=== PATIENT | female | born 1935 | race Caucasian/White ===

== ENCOUNTER 2020-03-21 11:39 | Emergency (ER) | payer MEDICARE, BC ==
[2020-03-21] MEDS ORDERED: Meclizine 25 MG Tab PO ONE (12:38)
--- NOTE | 2020-03-21 12:45 | EDM.PDOC ---
ED HPI GENERAL MEDICAL PROBLEM - General Chief Complaint: Neurological Problem Stated Complaint: FEELING FAINT SINCE YESTERDAY VERTIGO Time Seen by Provider: 03/21/20 12:08 Source of Information: Reports: Patient, RN Notes Reviewed History Limitations: Reports: No Limitations - History of Present Illness INITIAL COMMENTS - FREE TEXT/NARRATIVE: I was out that it is a small scab 84-year-old female presents emergency department today for complaint of lightheadedness, She states is been ongoing for 2 days, it does wax and wane she seems to notice the lightheadedness occurs more frequently when she goes from lying to standing or sitting to standing. She has no difficulty ambulating but does feel that she may fall over. Has had nausea with no vomiting describes no neurologic deficit - Related Data Allergies Allergy/AdvReac Type Severity Reaction Status Date / Time No Known Allergies Allergy Verified 03/21/20 12:12 Home Meds: Home Meds FLUoxetine HCl [Fluoxetine HCl] 1 tab PO DAILY 03/21/20 [History] Levothyroxine 1 tab PO DAILY 03/21/20 [History] Potassium Chloride 1 tab PO DAILY 03/21/20 [History] atorvaSTATin [Lipitor] 1 tab PO DAILY 03/21/20 [History] carvediloL [Carvedilol] 1 tab PO DAILY 03/21/20 [History] Past Medical History Psychiatric History: Reports: Depression Endocrine/Metabolic History: Reports: Hypokalemia, Hypoparathyroidism Social & Family History - Tobacco Use Smoking Status *Q: Never Smoker ED ROS GENERAL - Review of Systems Review Of Systems: See Below Constitutional: Reports: No Symptoms HEENT: Reports: No Symptoms Respiratory: Reports: No Symptoms Cardiovascular: Reports: Lightheadedness GI/Abdominal: Reports: Nausea. Denies: Vomiting : Reports: No Symptoms Musculoskeletal: Reports: No Symptoms ED EXAM, DIZZINESS - Physical Exam Exam: See Below Text/Narrative:: Head impulse test: Corrective saccades is normal when head turned to the bilateral Nystagmus: unidirectional, horizontal 0-beating nystagmus Skew deviation: grossly absent Exam Limited By: No Limitations General Appearance: Alert, WD/WN, No Apparent Distress Eye Exam: Bilateral Eye: EOMI, Normal Inspection, PERRL Nystagmus: No: worsens with head to L, worsens with head to R, reproducible, reversible, constant, short duration Ears: Normal External Exam, Normal Canal, Hearing Grossly Normal, Normal TMs Throat/Mouth: Normal Inspection, Normal Lips, Normal Teeth, Normal Gums, Normal Oropharynx, Normal Voice, No Airway Compromise Head Exam: Atraumatic, Normocephalic Vertigo: reproducible (With sitting up) Neck: Normal Inspection, Supple, Non-Tender, Full Range of Motion Respiratory/Chest: No Respiratory Distress, Lungs Clear, Normal Breath Sounds, No Accessory Muscle Use, Chest Non-Tender Cardiovascular: Regular Rate, Rhythm, No Murmur GI/Abdominal: Soft, Non-Tender Neurological: Alert, Oriented x 3 Course - Vital Signs Last Recorded V/S: Last Vital Signs Temp 97.4 F 03/21/20 12:21 Pulse 67 03/21/20 12:21 Resp 18 03/21/20 12:21 BP 156/75 H 03/21/20 13:30 Pulse Ox 95 03/21/20 12:21 - Orders/Labs/Meds Labs: Laboratory Tests 03/21/20 03/21/20 03/21/20 Range/Units 12:38 12:50 12:50 WBC 4.9 (4.5-11.0) K/uL RBC 4.38 (3.30-5.50) M/uL Hgb 13.1 (12.0-15.0) g/dL Hct 39.9 (36.0-48.0) % MCV 91 (80-98) fL MCH 30 (27-31) pg MCHC 33 (32-36) % Plt Count 225 (150-400) K/uL Neut % (Auto) 60 (36-66) % Lymph % (Auto) 24 (24-44) % [place] % (Auto) 8 H (2-6) % Eos % (Auto) 7 H (2-4) % Baso % (Auto) 2 H (0-1) % Sodium 142 (140-148) mmol/L Potassium 3.9 (3.6-5.2) mmol/L Chloride 106 (100-108) mmol/L Carbon Dioxide 28 (21-32) mmol/L Anion Gap 7.6 (5.0-14.0) mmol/L BUN 15 (7-18) mg/dL Creatinine 0.8 (0.6-1.0) mg/dL Est Cr Clr Drug Dosing 46.82 mL/min Estimated GFR (MDRD) > 60 (>60) Glucose 102 (74-106) mg/dL Calcium 8.5 (8.5-10.1) mg/dL Total Bilirubin 0.7 (0.2-1.0) mg/dL AST 25 (15-37) U/L ALT 36 (12-78) U/L Alkaline Phosphatase 79 (46-116) U/L Total Protein 6.6 (6.4-8.2) g/dL Albumin 3.5 (3.4-5.0) g/dL Globulin 3.1 (2.3-3.5) g/dL Albumin/Globulin Ratio 1.1 L (1.2-2.2) Urine Color Yellow (YELLOW) Urine Appearance Slightly cloudy A (CLEAR) Urine pH 8.5 H (5.0-8.0) Ur Specific Brilliant 1.025 (1.008-1.030) Urine Protein Negative (NEGATIVE) mg/dL Urine Glucose (UA) Negative (NEGATIVE) mg/dL Urine Ketones Negative (NEGATIVE) mg/dL Urine Occult Blood Negative (NEGATIVE) Urine Nitrite Negative (NEGATIVE) Urine Bilirubin Negative (NEGATIVE) Urine Urobilinogen 0.2 (0.2-1.0) EU/dL Ur Leukocyte Esterase Trace H (NEGATIVE) Urine RBC 0-5 (0-5) Urine WBC 0-5 (0-5) Ur Epithelial Cells Few Amorphous Sediment Many Urine Bacteria Not seen Urine Mucus Not seen Meds: Medications Discontinued Medications Generic Name Dose Route Start Last Admin Trade Name Freq PRN Reason Stop Dose Admin Meclizine HCl 25 mg 03/21/20 12:38 03/21/20 12:45 Antivert PO 03/21/20 12:39 25 mg ONETIME ONE Administration Departure - Departure Time of Disposition: 14:40 Disposition: Home, Self-Care 01 Condition: Fair Clinical Impression: Lightheadedness - Discharge Information Instructions: Dehydration, Elderly, [id number] Referrals: Jesse Tolbert MD [Primary Care Provider] - Forms: ED Department Discharge Additional Instructions: Recommending increasing your fluid intake, and take more time when you move positions from lying to standing, please followup with your primary care provider in 3-5 days if not better, please call return to the emergency department with worsening of symptoms. Sepsis Event Note (ED) - Evaluation Sepsis Screening Result: No Definite Risk - Focused Exam Vital Signs: Vital Signs Temp Pulse Resp BP Pulse Ox 03/21/20 13:30 156/75 H 03/21/20 13:00 143/65 H 03/21/20 12:30 153/71 H 03/21/20 12:21 97.4 F 67 18 191/88 H 95 03/21/20 12:10 97.4 F 67 18 191/88 H 95 - Assessment/Plan Plan: Assessment Acuity = acute Site and laterality = lightheadedness Etiology = probable relationship to intravascular volume depletion with high specific gravity 1.025 and blood pressure medications mainly the beta-camilla Manifestations = none Location of injury = Home Lab values = CBC CMP unremarkable urinalysis does reveal specific gravity 1.025 Plan I did review lab work with her as well as her medications she is getting try and increase her fluid intake and try and move more slowly when she changes position and follow-up with her primary care in 3 to 5 days if not better This note was dictated using [employer] voice recognition software please call with any questions on syntax or grammar.
== END 2020-03-21 15:00 | disposition home or self-care (01) ==
LOC: JP.ED 11:39
DX: R42 Dizziness and giddiness (principal); F32.9 Major depressive disorder, single episode, unspecified; E20.9 Hypoparathyroidism, unspecified; Z79.899 Other long term (current) drug therapy
CPT/HCPCS: 36415; 80053; 81001; 85025; 99284; A9270

== ENCOUNTER 2020-03-22 11:55 | Emergency (ER) | payer MEDICARE, BC ==
[2020-03-22] MEDS ORDERED: Sodium Chloride 0.9% 10 ML Syringe FLUSH PRN ×2 (12:41→13:40)
[2020-03-22] MEDS ORDERED: Sodium Chloride 0.9% 1,000 ML IV SCH (12:45)
--- NOTE | 2020-03-22 12:52 | EDM.PDOC ---
ED HPI GENERAL MEDICAL PROBLEM - General Chief Complaint: Gastrointestinal Problem Stated Complaint: LETHARGIC, NAUSEA Time Seen by Provider: 03/22/20 12:14 Source of Information: Reports: Patient, Old Records, RN Notes Reviewed History Limitations: Reports: No Limitations - History of Present Illness INITIAL COMMENTS - FREE TEXT/NARRATIVE: 84-year-old female presents emergency department a complaint of lightheadedness, I had the opportunity to evaluate her yesterday for her lightheadedness she has been lightheaded for now 3 to 4 days she feels it is positional she does admit to not drinking as much fluid as she should my evaluation yesterday normal blood work however her specific gravity of her urine was consistent with intravascular volume depletion. I recommended she consume more fluids especially with electrolytes and take caution when changing positions being on her beta-camilla. She went home yesterday had one bout of emesis slept through the night did not take any of her evening medications her morning medications. She contacted the clinic for evaluation with her primary care provider recommendations from the clinic were go to go to the emergency department she is here for further evaluation. - Related Data Allergies Allergy/AdvReac Type Severity Reaction Status Date / Time No Known Allergies Allergy Verified 03/22/20 12:13 Home Meds: Home Meds FLUoxetine HCl [Fluoxetine HCl] 1 tab PO DAILY 03/21/20 [History] Levothyroxine 1 tab PO DAILY 03/21/20 [History] Potassium Chloride 1 tab PO DAILY 03/21/20 [History] atorvaSTATin [Lipitor] 1 tab PO DAILY 03/21/20 [History] carvediloL [Carvedilol] 1 tab PO DAILY 03/21/20 [History] Past Medical History Cardiovascular History: Reports: Angina, High Cholesterol, Hypertension Other Cardiovascular History: mitral valve prolapse Psychiatric History: Reports: Depression Endocrine/Metabolic History: Reports: Hypokalemia, Hypoparathyroidism - Past Surgical History GI Surgical History: Reports: Colonoscopy Social & Family History - Tobacco Use Smoking Status *Q: Former Smoker Used Tobacco, but Quit: Yes Month/Year Tobacco Last Used: 25 years - Caffeine Use Caffeine Use: Reports: Coffee - Recreational Drug Use Recreational Drug Use: No ED ROS GENERAL - Review of Systems Review Of Systems: See Below Constitutional: Reports: No Symptoms HEENT: Reports: No Symptoms Respiratory: Reports: No Symptoms Cardiovascular: Reports: Lightheadedness GI/Abdominal: Reports: No Symptoms : Reports: No Symptoms ED EXAM, DIZZINESS - Physical Exam Exam: See Below Text/Narrative:: She was able to ambulate up and down the mcnulty in the emergency department without difficulty Exam Limited By: No Limitations General Appearance: Alert, WD/WN, No Apparent Distress Respiratory/Chest: No Respiratory Distress Neurological: Alert, Normal Mood/Affect, Normal Gait Course - Vital Signs Last Recorded V/S: Last Vital Signs Temp 97.5 F 03/22/20 12:24 Pulse 68 03/22/20 12:24 Resp 12 03/22/20 12:24 BP 151/61 H 03/22/20 12:24 Pulse Ox 95 03/22/20 12:24 - Orders/Labs/Meds Orders: Active Orders 24 hr Category Date Time Status Peripheral IV Care [RC] . DIRECTED Care 03/22/20 12:42 Active Sodium Chloride 0.9% [Normal Saline] 1,000 ml Med 03/22/20 12:45 Active IV ASDIRECTED Sodium Chloride 0.9% [Saline Flush] Med 03/22/20 12:41 Active 10 ml FLUSH ASDIRECTED PRN Peripheral IV Insertion Adult [OM.PC] Urgent Oth 03/22/20 12:41 Ordered Medication Orders Sodium Chloride (Normal Saline) 1,000 mls @ 500 mls/hr IV ASDIRECTED BRIAN Last Admin: 03/22/20 13:00 Dose: 500 mls/hr Documented by: [email or web address] Sodium Chloride (Saline Flush) 10 ml FLUSH ASDIRECTED PRN PRN Reason: Keep Vein Open Last Admin: 03/22/20 13:01 Dose: 10 ml Documented by: [id number] Meds: Medications Generic Name Dose Route Start Last Admin Trade Name Freq PRN Reason Stop Dose Admin Sodium Chloride 1,000 mls @ 500 mls/hr 03/22/20 12:45 03/22/20 13:00 Normal Saline IV 500 mls/hr ASDIRECTED BRIAN Administration Sodium Chloride 10 ml 03/22/20 12:41 03/22/20 13:01 Saline Flush FLUSH 10 ml ASDIRECTED PRN Administration Keep Vein Open Discontinued Medications Generic Name Dose Route Start Last Admin Trade Name Freq PRN Reason Stop Dose Admin Sodium Chloride 100 mls @ 3.5 mls/sec 03/22/20 13:45 03/22/20 14:20 Normal Saline IV 03/22/20 13:46 4 mls/sec ASDIRECTED BRIAN Administration Iopamidol 100 ml 03/22/20 13:45 03/22/20 14:20 [id number] (76%) IV 03/22/20 13:46 100 ml . DIRECTED BRIAN Administration Sodium Chloride 10 ml 03/22/20 13:40 03/22/20 14:19 Saline Flush FLUSH 03/22/20 13:41 10 ml ONETIME PRN Administration per radiology protocol Departure - Departure Time of Disposition: 15:12 Disposition: Home, Self-Care 01 Condition: Fair Clinical Impression: Lightheadedness - Discharge Information Instructions: Dehydration, Adult, [id number] Referrals: PCP,None [Primary Care Provider] - Forms: ED Department Discharge Additional Instructions: Please keep your follow-up appointment with your primary care provider on Sunday at 130 Sepsis Event Note (ED) - Evaluation Sepsis Screening Result: No Definite Risk - Focused Exam Vital Signs: Vital Signs Temp Pulse Resp BP Pulse Ox 03/22/20 12:24 97.5 F 68 12 151/61 H 95 03/22/20 12:18 97.5 F 68 12 151/61 H 95 - My Orders Last 24 Hours: My Active Orders 03/22/20 12:41 Sodium Chloride 0.9% [Saline Flush] 10 ml FLUSH ASDIRECTED PRN Peripheral IV Insertion Adult [OM.PC] Urgent 03/22/20 12:42 Peripheral IV Care [RC] . DIRECTED 03/22/20 12:45 Sodium Chloride 0.9% [Normal Saline] 1,000 ml IV ASDIRECTED - Assessment/Plan Last 24 Hours: My Active Orders 03/22/20 12:41 Sodium Chloride 0.9% [Saline Flush] 10 ml FLUSH ASDIRECTED PRN Peripheral IV Insertion Adult [OM.PC] Urgent 03/22/20 12:42 Peripheral IV Care [RC] . DIRECTED 03/22/20 12:45 Sodium Chloride 0.9% [Normal Saline] 1,000 ml IV ASDIRECTED Plan: Assessment Acuity = acute Site and laterality = lightheadedness Etiology = unknown suspicious for medication Manifestations = none Location of injury = Home Lab values = CT of the head does show questionable area right periventricular region possible old infarction CTA shows a smaller right vertebral artery but no occlusion Plan I did review CT scans with her vascular follow-up with her primary care we do have an appointment on Sunday at 130 she felt better after 1 L of fluids was able to ambulate around the emergency department without difficulty This note was dictated using [employer] voice recognition software please call with any questions on syntax or grammar.
[2020-03-22] MEDS ORDERED: Iopamidol 755 Mg/ML 100 ML Bottle IV SCH (13:45)
[2020-03-22] MEDS ORDERED: Sodium Chloride 0.9% 100 ML IV SCH (13:45)
--- NOTE | 2020-03-22 14:49 | CT ---
Head wo Cont CLINICAL HISTORY: Lightheadedness COMPARISON: None TECHNIQUE: Transverse scans were obtained from the base of the skull through the vertex without IV contrast on a multislice, multidetector CT scanner. Auto dosage reduction and iterative reconstruction techniques employed. FINDINGS: There is a vague 1 cm focus of low attenuation adjacent to the right frontal horn. There is no mass effect, hemorrhage, or extraaxial collection. The basal cisterns and sulci over the convexities are element. The ventricles are all for age. IMPRESSION: Vague low-attenuation in the right the frontal periventricular region. This could represent a previous ischemic infarct or chronic ischemic microvascular change. No mass effect or hemorrhage
--- NOTE | 2020-03-22 14:52 | CT ---
Ang Head CLINICAL HISTORY: Lightheadedness. COMPARISON: None TECHNIQUE: Multiple volume rendered and MIP 3D reconstructions were generated from source images obtained on a spiral scanner before and after intravenous iodinated contrast enhancement Auto dosage reduction and iterative reconstruction techniques employed. FINDINGS: Internal carotid arteries: Have a normal course and contour Anterior cerebral arteries: Have a normal course and contour. The anterior communicating artery is patent Middle cerebral arteries: Have a normal course and contour Posterior cerebral arteries: Have a normal course and contour. There are patent posterior communicating arteries bilaterally. Vertebral/basilar arteries: Areas very diminutive right vertebral artery. The basilar artery has a normal contour IMPRESSION: Small right vertebral artery. Visualized arteries otherwise have a normal course and contour
== END 2020-03-22 15:53 | disposition home or self-care (01) ==
LOC: JP.ED 11:55
DX: R42 Dizziness and giddiness (principal); E78.00 Pure hypercholesterolemia, unspecified; I10 Essential (primary) hypertension; F32.9 Major depressive disorder, single episode, unspecified; E20.9 Hypoparathyroidism, unspecified; Z87.891 Personal history of nicotine dependence; Z79.899 Other long term (current) drug therapy
CPT/HCPCS: 70450; 70496; 96360; 96361; 99284; J7030; J7050; Q9967

== ENCOUNTER 2022-04-08 08:56 | Emergency (ER) | payer MEDICARE, BC ==
[2022-04-08 10:35] LABS: TROPONIN I HIGH SENSITIVITY 5.5 pg/mL (<=60.3)
== END 2022-04-08 11:00 | disposition home or self-care (01) ==
LOC: JP.ED 08:56
DX: F41.9 Anxiety disorder, unspecified (principal); R19.7 Diarrhea, unspecified; E78.00 Pure hypercholesterolemia, unspecified; I10 Essential (primary) hypertension; Z87.891 Personal history of nicotine dependence; Z79.899 Other long term (current) drug therapy
CPT/HCPCS: 36415; 80048; 84484; 85025; 99284

== ENCOUNTER 2024-03-06 07:44 | Emergency (ER) | payer MEDICARE, BC ==
[2024-03-06 08:43] LABS: BASE EXCESS VENOUS 2.3 mm/L; BASOPHILS ABSOLUTE AUTO 0.11 K/uL (0.00-0.10); BASOPHILS PERCENT AUTO 1.6 % (0.1-1.3); BICARBONATE,VENOUS 25.9 mmol/L; CARBOXYHEMOGLOBIN 2.3 % (0.0-1.6); EOSINOPHILS ABSOLUTE AUTO 0.31 K/uL (0.00-0.40); EOSINOPHILS PERCENT AUTO 4.5 % (0.0-5.4); HEMOGLOBIN 12.1 g/dL (11.2-15.5); IMMATURE GRAN ABSOLUTE AUTO 0.12 K/uL (0.00-0.23); IMMATURE GRAN PERCENT AUTO 1.7 % (0.0-0.7); LYMPHOCYTES ABSOLUTE AUTO 1.47 K/uL (0.8-3.3); LYMPHOCYTES PERCENT AUTO 21.3 % (11.4-47.7); MEAN CORPUSCULAR HEMOGLOBIN 30.9 pg (31.6-35.5); MEAN CORPUSCULAR HGB CONC 34.6 g/dL (31.6-35.5); MEAN CORPUSCULAR VOLUME 89.3 fL (81.4-99.0); METHEMOGLOBIN 0.9 %; MONOCYTES ABSOLUTE AUTO 0.57 K/uL (0.20-0.90); MONOCYTES PERCENT AUTO 8.3 % (3.3-12.6); NEUTROPHILS ABSOLUTE AUTO 4.32 K/uL (1.0-7.6); NEUTROPHILS PERCENT AUTO 62.6 % (40.0-78.1); O2 SATURATION VENOUS 63.5; OXYHEMOGLOBIN 61.5 %; PCO2 VENOUS 38.2 mm/Hg; PH,VENOUS 7.446 (7.350-7.450); PLATELET COUNT,PLT 423 K/uL (130-375); PO2 VENOUS 35.6 mm/Hg; RED BLOOD CELL COUNT 3.92 M/uL (3.77-5.24); TOTAL HEMOGLOBIN 12.7 g/dL (12.0-16.0); WHITE BLOOD CELL COUNT,WBC 6.9 K/uL (3.2-11.0)
[2024-03-06 09:13] LABS: CALCIUM 9.1 mg/dL (8.5-10.1); CREATININE 0.8 mg/dL (0.6-1.0); EST CRCL DRUG DOSING (CG) 43.59 mL/min; POTASSIUM,K 4.2 mmol/L (3.6-5.2)
[2024-03-06 09:14] LABS: TROPONIN I HIGH SENSITIVITY 5.5 pg/mL (<=60.3)
[2024-03-06 09:15] LABS: ANION GAP 13.2 mmol/L (5.0-14.0)
== END 2024-03-06 10:52 | disposition home or self-care (01) ==
LOC: JP.ED 07:44
DX: S70.02XA Contusion of left hip, initial encounter (principal); J18.9 Pneumonia, unspecified organism; R53.1 Weakness; R53.83 Other fatigue; N64.59 Other signs and symptoms in breast; E78.00 Pure hypercholesterolemia, unspecified; I10 Essential (primary) hypertension; Z79.899 Other long term (current) drug therapy; W19.XXXA Unspecified fall, initial encounter
CPT/HCPCS: 36415; 71046; 71046-26; 80048; 82803; 83880; 84145; 84484; 85025; 86140; 93005; 93010; 99284; 99285

== ENCOUNTER 2024-03-08 17:10 | Inpatient (IN) | payer MEDICARE, BC ==
[2024-03-08 17:52] LABS: BASE EXCESS VENOUS -0.1 mm/L; BICARBONATE,VENOUS 23.7 mmol/L; CARBOXYHEMOGLOBIN 2.5 % (0.0-1.6); METHEMOGLOBIN 0.8 %; O2 SATURATION VENOUS 75.1; OXYHEMOGLOBIN 72.6 %; PCO2 VENOUS 37.6 mm/Hg; PH,VENOUS 7.415 (7.350-7.450); PO2 VENOUS 43.6 mm/Hg; TOTAL HEMOGLOBIN 14.3 g/dL (12.0-16.0)
[2024-03-08 17:54] LABS: BASOPHILS ABSOLUTE AUTO 0.12 K/uL (0.00-0.10); BASOPHILS PERCENT AUTO 1.7 % (0.1-1.3); EOSINOPHILS ABSOLUTE AUTO 0.23 K/uL (0.00-0.40); EOSINOPHILS PERCENT AUTO 3.2 % (0.0-5.4); HEMATOCRIT 39.5 % (34.3-46.0); HEMOGLOBIN 13.9 g/dL (11.2-15.5); IMMATURE GRAN ABSOLUTE AUTO 0.09 K/uL (0.00-0.23); IMMATURE GRAN PERCENT AUTO 1.3 % (0.0-0.7); LYMPHOCYTES PERCENT AUTO 27.8 % (11.4-47.7); MEAN CORPUSCULAR HEMOGLOBIN 31.1 pg (31.6-35.5); MEAN CORPUSCULAR HGB CONC 35.2 g/dL (31.6-35.5); MEAN CORPUSCULAR VOLUME 88.4 fL (81.4-99.0); MONOCYTES ABSOLUTE AUTO 0.63 K/uL (0.20-0.90); MONOCYTES PERCENT AUTO 8.8 % (3.3-12.6); NEUTROPHILS ABSOLUTE AUTO 4.12 K/uL (1.0-7.6); NEUTROPHILS PERCENT AUTO 57.2 % (40.0-78.1); PLATELET COUNT,PLT 542 K/uL (130-375); RED BLOOD CELL COUNT 4.47 M/uL (3.77-5.24); WHITE BLOOD CELL COUNT,WBC 7.2 K/uL (3.2-11.0)
[2024-03-08] MEDS: Sodium Chloride 0.9% 1,000 ML IV SCH (17:56)
[2024-03-08 18:21] LABS: A/G RATIO 0.7 (1.2-2.2); ALANINE AMINOTRANSFERASE,ALT 39 U/L (12-78); ALBUMIN 3.1 g/dL (3.4-5.0); ALKALINE PHOSPHATASE 86 U/L (46-116); ASPARTATE AMNIOTRANSFERASE,AST 39 U/L (15-37); BILIRUBIN TOTAL 0.8 mg/dL (0.2-1.0); BLOOD UREA NITROGEN,BUN 13 mg/dL (7-18); CALCIUM 9.2 mg/dL (8.5-10.1); CARBON DIOXIDE,CO2 24 mmol/L (21-32); CHLORIDE,CL 102 mmol/L (100-108); CREATININE 0.8 mg/dL (0.6-1.0); EST CRCL DRUG DOSING (CG) 39.92 mL/min; ESTIMATED GFR 72 mL/min (>60); GLUCOSE RANDOM 102 mg/dL (74-106); PRO B-TYPE NATRIUR PEPT,BNPPRO 32 pg/mL (5-450); PROTEIN TOTAL,TP 7.3 g/dL (6.4-8.2); SODIUM,NA 137 mmol/L (140-148)
[2024-03-08 18:35] LABS: CORONAVIRUS COVID-19 NAA NEGATIVE (NEGATIVE); INFLUENZA A NAA NEGATIVE (NEGATIVE); INFLUENZA B NAA NEGATIVE (NEGATIVE); RESPIRATORY SYNCYTIAL VIR NAA NEGATIVE (NEGATIVE)
[2024-03-08 19:34] LABS: APPEARANCE,URINE CLEAR (CLEAR); BILIRUBIN,URINE NEGATIVE (NEGATIVE); COLOR,URINE YELLOW (YELLOW); GLUCOSE,URINE NEGATIVE (NEGATIVE); KETONES,URINE NEGATIVE (NEGATIVE); LEUKOCYTE ESTERASE,URINE TRACE (NEGATIVE); NITRITE,URINE POSITIVE (NEGATIVE); OCCULT BLOOD,URINE NEGATIVE (NEGATIVE); PROTEIN,URINE NEGATIVE (NEGATIVE); UROBILINOGEN,URINE 0.2 EU/dL (0.2-1.0)
[2024-03-08 19:38] LABS: AMORPHOUS SEDIMENT,URINE NOT SEEN; BACTERIA,URINE NOT SEEN; EPITHELIAL CELLS,URINE FEW; MUCUS,URINE NOT SEEN; RBC,URINE 0-5 (0-5); WBC,URINE 0-5 (0-5)
[2024-03-08] MEDS: Sodium Chloride 0.9% 10 ML Syringe FLUSH ONE (20:07)
[2024-03-08] MEDS: Iopamidol 755 Mg/ML 100 ML Bottle IV ONE (20:07)
[2024-03-08] MEDS: Sodium Chloride 0.9% 100 ML IV ONE (20:07)
[2024-03-08] MEDS ORDERED: Morphine 2 MG/ML SYRINGE IVPUSH PRN (22:57)
[2024-03-08] MEDS ORDERED: Naloxone 0.4 MG/ML SDV IVPUSH PRN (22:57)
[2024-03-08] MEDS ORDERED: oxyCODONE 5 MG Tab PO PRN (22:57)
[2024-03-08] MEDS ORDERED: Nitroglycerin 0.4 MG Tab.SL SL PRN (22:57)
[2024-03-08] MEDS ORDERED: Ondansetron 4 MG Tab.DIS PO PRN (22:57)
[2024-03-08] MEDS ORDERED: Bisacodyl 5 MG Tab PO PRN (22:57)
[2024-03-08] MEDS ORDERED: Albuterol 0.083% 2.5 MG/3 ML Neb Soln NEB PRN (22:57)
[2024-03-08] MEDS ORDERED: Docusate Sodium 100 MG Cap PO PRN (22:57)
[2024-03-08] MEDS ORDERED: Acetaminophen 325 MG Tab PO PRN (22:57)
[2024-03-09] MEDS: Albuterol/Ipratropium 3.0-0.5 MG/3 ML Neb Soln NEB SCH ×2 (00:09→10:34)
[2024-03-09] MEDS: Carvedilol 3.125 MG Tab PO SCH (00:12)
[2024-03-09] MEDS: Enoxaparin 40 MG/0.4 ML Syringe SUBCUT SCH ×2 (00:13→20:48)
[2024-03-09] MEDS: Meropenem 500 MG in Sodium Chloride 0.9% 50 ML IV SCH (00:14)
[2024-03-09] MEDS: Sodium Chloride 0.9% 1,000 ML IV SCH (00:20)
[2024-03-09] MEDS: methylPREDNISolone Sodium Succinate 125 MG/2 ML SDV IVPUSH ONE (00:23)
[2024-03-09] MEDS: methylPREDNISolone Sodium Succinate 125 MG/2 ML SDV IM ONE (00:38)
[2024-03-09] MEDS: methylPREDNISolone Sodium Succinate 40 MG/1 ML SDV IVPUSH SCH (05:50)
[2024-03-09 05:59] LABS: BASOPHILS ABSOLUTE AUTO 0.04 K/uL (0.00-0.10); BASOPHILS PERCENT AUTO 0.7 % (0.1-1.3); EOSINOPHILS ABSOLUTE AUTO 0.01 K/uL (0.00-0.40); EOSINOPHILS PERCENT AUTO 0.2 % (0.0-5.4); HEMATOCRIT 36.6 % (34.3-46.0); HEMOGLOBIN 12.6 g/dL (11.2-15.5); IMMATURE GRAN ABSOLUTE AUTO 0.05 K/uL (0.00-0.23); IMMATURE GRAN PERCENT AUTO 0.8 % (0.0-0.7); LYMPHOCYTES ABSOLUTE AUTO 0.66 K/uL (0.8-3.3); LYMPHOCYTES PERCENT AUTO 10.7 % (11.4-47.7); MEAN CORPUSCULAR HEMOGLOBIN 30.5 pg (31.6-35.5); MEAN CORPUSCULAR HGB CONC 34.4 g/dL (31.6-35.5); MEAN CORPUSCULAR VOLUME 88.6 fL (81.4-99.0); MONOCYTES PERCENT AUTO 1.6 % (3.3-12.6); NEUTROPHILS ABSOLUTE AUTO 5.28 K/uL (1.0-7.6); PLATELET COUNT,PLT 542 K/uL (130-375); RED BLOOD CELL COUNT 4.13 M/uL (3.77-5.24); WHITE BLOOD CELL COUNT,WBC 6.1 K/uL (3.2-11.0)
[2024-03-09 06:12] LABS: CALCIUM 8.5 mg/dL (8.5-10.1); CREATININE 0.7 mg/dL (0.6-1.0); EST CRCL DRUG DOSING (CG) 49.82 mL/min; POTASSIUM,K 4.3 mmol/L (3.6-5.2)
[2024-03-09 06:13] LABS: ANION GAP 14.3 mmol/L (5.0-14.0)
[2024-03-09] MEDS: Levothyroxine 25 MCG Tab PO SCH (08:30)
[2024-03-09] MEDS: Meropenem 1 GM in Sodium Chloride 0.9% 100 ML IV SCH (08:30)
[2024-03-09] MEDS: Pantoprazole 40 MG Tab.CR PO SCH (08:30)
[2024-03-09] MEDS: FLUoxetine 20 MG Cap PO SCH (08:32)
[2024-03-09] MEDS: atorvaSTATin 20 MG Tab PO SCH (08:32)
[2024-03-09] MEDS: Potassium Chloride 10 MEQ Cap.ER PO SCH (08:32)
[2024-03-09] MEDS: Zinc Oxide 20% Oint 56.7 GM Tube TOP PRN (08:40)
[2024-03-10] MEDS: Clotrimazole 1% Crm 30 GM Tube TOP PRN (00:50)
[2024-03-10] MEDS ORDERED: Clotrimazole 1% Vaginal Crm 45 GM Tube VAG PRN (07:30)
[2024-03-10] MEDS: predniSONE 20 MG Tab PO SCH (19:30)
[2024-03-11 05:43] LABS: CALCIUM 8.9 mg/dL (8.5-10.1); CREATININE 0.7 mg/dL (0.6-1.0); EST CRCL DRUG DOSING (CG) 49.82 mL/min; POTASSIUM,K 4.4 mmol/L (3.6-5.2)
[2024-03-11 05:47] LABS: ANION GAP 13.4 mmol/L (5.0-14.0)
[2024-03-12 11:19] VITALS: BP 120/52; PULSE 82
== END 2024-03-12 12:25 | disposition home or self-care (01) | DRG 948 ==
LOC: JP.ED 17:10 → JP.MS 21:58
PROVIDERS: ADMIT Nurse Practitioner; ATTEND Hospitalist
DX: J69.0 Pneumonitis due to inhalation of food and vomit (principal); R53.1 Weakness; R53.83 Other fatigue; L98.8 Other specified disorders of the skin and subcutaneous tissue; Z66 Do not resuscitate; I10 Essential (primary) hypertension; E78.00 Pure hypercholesterolemia, unspecified; F32.A Depression, unspecified; Z79.82 Long term (current) use of aspirin; Z79.899 Other long term (current) drug therapy; Z79.890 Hormone replacement therapy; Z87.891 Personal history of nicotine dependence; W19.XXXA Unspecified fall, initial encounter; Y92.009 Unspecified place in unspecified non-institutional (private) residence as the place of occurrence of the external cause
CPT/HCPCS: 0241U; 36415; 71045 ×2; 71275; 80053; 81001; 82803; 83605; 83735; 83880; 84145; 84484; 85025; 85379; 87040; 87086; 93005; 96360; 96361; 99285 ×2; J3490 ×2; J7030; Q9967; 76642-26-RT; 76642-RT; 77066; 77066-26; 80048; 84443; 94640; 97110-GP; 97161-GP; 97165-GO; 99222; 99232; 99238; A9270-GY; G0279; G0279-26; J1650; J2185; J2919; J3370; J7050; J7512; J7620